=== PATIENT | female | born 2005 | race Caucasian/White ===

== ENCOUNTER 2024-12-20 12:27 | Emergency (ER) | payer MEDICAID ==
[~2024-12-20] VITALS: Ht 167.6 cm; Wt 66.0 kg
[2024-12-20 12:42] VITALS: O2SAT 100
[2024-12-20] MEDS ORDERED: METOCLOPRAMIDE HCL 10MG/2ML VIAL IV ONE (13:00)
[2024-12-20 13:19] LABS: CHLORIDE 105 mEq/L (98-107); POTASSIUM 3.7 mEq/L (3.5-5.1); SODIUM 142 mEq/L (136-145)
[2024-12-20 13:20] LABS: BASOPHILS % 0.7 % (0.0-2.0); CALCIUM 9.5 mg/dL (8.7-10.4); CARBON DIOXIDE 26 mEq/L (21-32); EOSINOPHILS % 2.2 % (0.0-5.0); HEMATOCRIT. 39.8 % (36.0-48.0); HEMOGLOBIN. 13.2 g/dL (12.0-16.0); LYMPHOCYTES % 29.5 % (20.0-50.0); MEAN CORPUSCULAR HEMOGLOBIN 28.6 pg (28.0-32.0); MEAN CORPUSCULAR HGB CONC 33.3 g/dL (31.0-37.0); MEAN PLATELET VOLUME 7.8 fl (7.4-10.4); NEUTROPHILS % 58.6 % (40.0-76.0); PLATELET 306 x1000/uL (130-400); RED BLOOD CELL COUNT 4.62 mill/uL (4.2-5.4); RED CELL DISTRIBUTION WIDTH 12.5 % (11.6-14.6); WHITE BLOOD COUNT 6.8 x1000/uL (4.5-11.0)
[2024-12-20 13:24] LABS: CREATININE 0.6 mg/dL (0.6-1.0)
[2024-12-20 13:25] LABS: GLUCOSE 95 mg/dL (70-105); UREA NITROGEN BLOOD 8 mg/dL (9-23)
[2024-12-20 13:26] LABS: ALBUMIN 4.5 g/dL (3.2-4.8)
[2024-12-20 13:27] LABS: ALANINE AMINOTRANSFERASE < 7 IU/L (10-49); ASPARTATE AMINOTRANSFERASE 16 IU/L (<34); BILIRUBIN DIRECT 0.2 mg/dL (<=3.0); BILIRUBIN TOTAL 0.9 mg/dL (0.1-1.0); PROTEIN TOTAL 7.6 g/dL (6.0-8.3)
[2024-12-20 13:30] LABS: HCG SCREEN NEGATIVE
[2024-12-20] MEDS: ACETAMINOPHEN 325MG TABLET PO ONE (13:30)
[2024-12-20 14:23] LABS: CLARITY URINE CLOUDY (CLEAR); COLOR URINE ORANGE (YELLOW); GLUCOSE URINE NEGATIVE (NEGATIVE); KETONES URINE NEGATIVE (NEGATIVE); LEUKOCYTE ESTERASE URINE TRACE (NEGATIVE); NITRITE URINE NEGATIVE (NEGATIVE); OCCULT BLOOD URINE 3+ (NEGATIVE); PROTEIN URINE TRACE (NEGATIVE); SPECIFIC GRAVITY URINE 1.011 (1.005-1.030); UROBILINOGEN URINE 0.2 E.U./dL (0.2-1.0)
[2024-12-20 14:40] LABS: SQUAMOUS EPITHELIAL CELL URINE 2+ /lpf (RARE/1+); WBC URINE 0-2 /hpf (0-2)
[2024-12-20 14:41] LABS: BACTERIA URINE 3+
[2024-12-20 15:43] LABS: PROTHROMBIN TIME 10.5 sec (9.6-11.0)
[2024-12-20] MEDS ORDERED: SULF1TAB48 MT (16:27)
[2024-12-20 16:47] VITALS: BP 115/64; PULSE 80; RESP 20; TEMP 37; O2SAT 100
[2024-12-20] MEDS ORDERED: IOHEXOL-300 100 ML BOTTLE ONE ×2 (16:51→23:17)
== END 2024-12-20 16:50 | disposition home or self-care (01) ==
LOC: ER 12:27
DX: N39.0 Urinary tract infection, site not specified (principal); G43.909 Migraine, unspecified, not intractable, without status migrainosus
CPT/HCPCS: 99285; 74177; 80076; 80048; 81003; 81025; 84703; 85025; 85610; 86850; 86900; 86901; 36415; Q9967